=== PATIENT | male | born 1990 | race Caucasian/White ===

== ENCOUNTER 2021-02-27 18:47 | Emergency (ER) | payer BC ==
[2021-02-27 20:18] LABS: HEMOGLOBIN 15.9 gm/dl (14.0-17.5); RED BLOOD COUNT 5.48 M/UL (4.20-5.50); WHITE BLOOD COUNT 13.6 K/UL (4.5-11.0)
[2021-02-27 20:40] LABS: BUN/CREATININE RATIO 17 (0-10)
== END 2021-02-27 21:58 | disposition home or self-care (01) ==
LOC: ER1 18:47
PROVIDERS: Physician Assistant
DX: K91.872 Postprocedural seroma of a digestive system organ or structure following a digestive system procedure (principal); K91.840 Postprocedural hemorrhage of a digestive system organ or structure following a digestive system procedure; Z90.89 Acquired absence of other organs
CPT/HCPCS: 80053; 83690; 85025; 99283

== ENCOUNTER 2021-03-03 19:20 | Emergency (ER) | payer BC ==
[2021-03-03 20:10] LABS: HEMOGLOBIN 15.3 gm/dl (14.0-17.5); RED BLOOD COUNT 5.33 M/UL (4.20-5.50); WHITE BLOOD COUNT 8.9 K/UL (4.5-11.0)
[2021-03-03 20:28] LABS: BUN/CREATININE RATIO 12 (0-10)
== END 2021-03-03 21:35 | disposition home or self-care (01) ==
LOC: ER1 19:20
PROVIDERS: Preventive Medicine Occupational Medicine
DX: K91.89 Other postprocedural complications and disorders of digestive system (principal); R19.05 Periumbilic swelling, mass or lump; Z90.89 Acquired absence of other organs; Y83.8 Other surgical procedures as the cause of abnormal reaction of the patient, or of later complication, without mention of misadventure at the time of the procedure
CPT/HCPCS: 80053; 85025; 99284; J7030; Q9967